=== PATIENT | female | born 1945 | race Caucasian/White ===

== ENCOUNTER 2017-10-08 11:58 | Inpatient (IN) | payer MEDICARE, OTHER ==
[~2017-10-08] VITALS: Ht 152.4 cm; Wt 58.8 kg
[~2017-10-08 11:58] MED LIST: ACETAMINOPHEN325 M1 PO; ALUM-MAG HYDRO360 ML PO; AMLODIPINE BESYL5 MG PO; ASPIRIN81 MG PO; ATENOLOL-CHLOR1 EAC1 PO; AUGMENTIN 500-1 EACH PO; BISACODYL5 MG PO; BISACODYL5 MG RC; BISCOLAX10 MG RC; CARAFATE1 GM/10 ML PO; CELLCEPT250 MG PO; CLONIDINE HCL0.1 MG PO; CLOTRIMAZOLE10 MG PO; COZAAR25 MG PO; CYMBALTA30 MG PO; CYMBALTA60 MG PO; DITROPAN XL10 MG PO; DOCUSATE SODIU100 MG PO; FOSAMAX10 MG PO; FOSINOPRIL SODI10 MG PO; FUROSEMIDE40 MG PO; GABAPENTIN100 MG PO; GLIMEPIRIDE2 MG PO; GUAIFENESI100 MG/5 M PO; HUMALOG100 UNITS/; HUMULIN R100 UNIT/2; HYDRALAZINE HCL25 MG PO; HYDRALAZINE HCL50 MG PO; ISOSORBIDE DINI20 MG PO; ISOSORBIDE MONO60 M1 PO; K DUR10 MEQ PO; KLOR-CON 1010 MEQ PO; LACTULOSE20 GM/30 M PO; LASIX20 MG PO; LASIX40 MG PO; LEVEMIR100 UNIT/1 SQ; LEVOTHYROXINE112 MCG PO; LEVOTHYROXINE125 MCG PO; LEVOTHYROXINE150 MCG PO; LIPITOR20 MG PO; LOSARTAN POTAS100 MG PO; LOSARTAN POTASS50 MG PO; MACROBID 100 M100 MG PO; MELOXICAM7.5 MG PO; METOLAZONE2.5 MG PO; METOPROLOL SUCC25 MG PO; METOPROLOL TART25 MG PO; MULTI-VITAMIN1 EACH PO; MYCOPHENOLATE500 MG PO; NEXIUM40 MG PO; NITROFURANTOIN100 M1 PO; NITROSTAT0.4 MG SL; NYSTATIN CREAM TOP; NYSTATIN100000 UNI PO; PANTOPRAZOLE SO40 MG PO; PHENERGAN25 MG/1 ML IM; PLAVIX75 MG PO; PROTONIX40 MG/ML PO; PYRIDIUM100 MG PO; ROPINIROLE HCL3 MG PO; SIMVASTATIN20 MG PO; SODIUM BICARBO650 MG PO; SULFAMETHOXAZO1 EAC1 PO; SYNTHROID50 MCG PO; TRADJENTA5 MG PO; ULTRAM 50MG50 MG PO; ULTRAM50 MG PO; VESICARE5 MG PO; VITAMIN D250000 UNIT PO; ZINC OXIDE56.7 GM TOP; ZOFRAN ODT4 MG PO; ZOLOFT50 MG PO
--- NOTE | 2017-10-08 13:17 | Diagnostic Imaging Report ---
EXAM: XR CHEST 1 VIEW DATE: 10/08/2017 12:32 PM INDICATION: Dizziness COMPARISON: 10/03/2017 FINDINGS: Lines and Tubes: None Heart and Mediastinum: Heart is enlarged. Lungs and Pleura: Perihilar fullness and haziness as well as patchy basilar opacities and small effusions, progressed. Bones and Soft Tissues: No acute findings. IMPRESSION: 1. Volume overload. Signed by: Dr. Owen Cardona MD on 10/08/2017 1:13 PM
--- NOTE | 2017-10-08 13:19 | Diagnostic Imaging Report ---
Examination: CT BRAIN WITHOUT CONTRAST History:Confusion; altered mental status. Technique: Transaxial noncontrast images from the skull base through the vertex were obtained. Sagittal and coronal reformatted images were done. Comparison: CT head dated 05/18/2017. Findings: Scalp: No abnormalities. Bones: Intact. No fractures. No blastic or lytic lesions. Brain sulci: Mild volume loss for age. Ventricles: No hydrocephalus. Extra-axial space: No abnormalities. Parenchyma: Again demonstrated is cortical based encephalomalacia in the left occipital lobe. Again demonstrated are mild confluent areas of hypoattenuation in the periventricular and subcortical white matter, nonspecific. No masses, hemorrhage, or acute cortical based vascular insults. Suprasellar region: No abnormalities. Craniocervical junction: The foramen magnum is patent. No Chiari one malformation. Incidental findings: Atherosclerotic calcification of the cavernous and supraclinoid internal carotid arteries. Impression: 1. No new or acute intracranial finding. No change from prior head CT dated 05/18/2017. 2. Unchanged moderate chronic microvascular ischemic change. 3. 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 Signed by: Dr. Madelyn Mireles M.D. on 10/08/2017 1:15 PM
[2017-10-08 13:56] LABS: BASOPHILS # (AUTO) 0.1 (0.0-0.1); BASOPHILS % 0.8 % (0.0-1.0); EOSINOPHILS # (AUTO) 0.4 (0.0-0.4); EOSINOPHILS % 5.7 % (0.0-6.0); HEMOGLOBIN 10.2 g/dL (12.0-16.0); LYMPHOCYTES % 31.4 % (18.0-39.1); MEAN CORPUSCULAR HEMOGLOBIN 30.1 pg (28-32); MEAN CORPUSCULAR HGB CONC 32.9 g/dL (31-35); MEAN CORPUSCULAR VOLUME 91.4 fL (81-99); MONOCYTES # (AUTO) 0.4 (0.2-0.8); MONOCYTES % 6.8 % (4.4-11.3); NEUTROPHILS # (AUTO) 3.5 (2.1-6.9); PLATELET COUNT 231 x10e3/uL (140-360); RED BLOOD COUNT 3.39 x10e6/uL (3.6-5.1); RED CELL DISTRIBUTION WIDTH 14.1 % (11.7-14.4)
[2017-10-08 14:06] LABS: BILIRUBIN,URINE NEGATIVE (NEGATIVE); CLARITY,URINE CLEAR (CLEAR); COLOR,URINE YELLOW (YELLOW); KETONES,URINE NEGATIVE (NEGATIVE); LEUKOCYTE ESTERASE ,URINE TRACE (NEGATIVE); NITRITE,URINE NEGATIVE (NEGATIVE); URINE UROBILINOGEN 0.2 mg/dL (0.2 - 1)
[2017-10-08 14:08] LABS: INR 0.94; PARTIAL THROMBOPLASTIN TIME 26.4 seconds (23.8-35.5)
[2017-10-08 14:10] LABS: PROTEIN,URINE DIPSTICK 2+ (NEGATIVE)
[2017-10-08 14:19] LABS: ALBUMIN 2.6 g/dL (3.5-5.0); ALBUMIN/GLOBULIN RATIO 0.8 (0.8-2.0); ANION GAP 13.9 mmol/L (8-16); CALCIUM 8.5 mg/dL (8.4-10.2); CREATININE, SERUM 2.98 mg/dL (0.57-1.11); POTASSIUM 4.9 mmol/L (3.5-5.1)
[2017-10-08 14:26] LABS: RBC,URINE 0-5 /HPF (0-5)
[2017-10-08 14:27] LABS: CREATINE KINASE MB 3.6 ng/mL (0.00-5.00); TROPONIN I 0.074 ng/mL (0-0.300)
[2017-10-08] MEDS ORDERED: SODIUM CHLORIDE FLUSH 10 ML SYR INJ PRN (14:45)
[2017-10-08] MEDS ORDERED: FUROSEMIDE INJ 10 MG/ML 4 ML VIAL IV ONE (15:15)
[2017-10-08] MEDS ORDERED: DEXTROSE 50% SYRINGE 50 ML IV PRN ×2 (15:15→18:30)
[2017-10-08 17:00] VITALS: BP 178/92
[2017-10-08 17:32] VITALS: BP 178/92
[2017-10-08] MEDS ORDERED: CEPHALEXIN MONOHYDRATE 250 MG CAP PO SCH ×2 (18:00→20:00)
[2017-10-08] MEDS ORDERED: BISACODYL 5 MG TAB EC PO PRN (18:30)
[2017-10-08] MEDS ORDERED: LACTULOSE SYRUP 20 GM/30 ML UDC PO PRN (18:30)
[2017-10-08] MEDS: MYCOPHENOLATE MOFETIL 250 MG CAP PO SCH (18:55)
[2017-10-08] MEDS: ISOSORBIDE DINITRATE 20 MG TAB PO SCH (19:32)
[2017-10-08] MEDS: CLONIDINE HCL 0.1 MG TAB PO PRN (19:33)
[2017-10-08 20:00] VITALS: BP 200/100
[2017-10-08] MEDS: ATORVASTATIN 20 MG TAB PO SCH (20:27)
[2017-10-08] MEDS: INSULIN REGULAR, HUMAN 100 UNIT/1 ML 3ML VIAL SQ SCH (20:28)
[2017-10-08] MEDS: SERTRALINE HCL 50 MG TAB PO SCH (20:28)
[2017-10-08] MEDS: CEPHALEXIN MONOHYDRATE 250 MG CAP PO SCH (23:00)
[2017-10-08] MEDS: ONDANSETRON HCL 4 MG ORAL DISINTEGRATING TAB PO SCH (23:00)
[2017-10-09] VITALS: BP 156/79
[2017-10-09 04:00] VITALS: BP 141/79
[2017-10-09 05:04] LABS: BASOPHILS # (AUTO) 0.1 (0.0-0.1); BASOPHILS % 0.8 % (0.0-1.0); EOSINOPHILS # (AUTO) 0.4 (0.0-0.4); EOSINOPHILS % 6.9 % (0.0-6.0); HEMATOCRIT 26.4 % (34.2-44.1); HEMOGLOBIN 8.5 g/dL (12.0-16.0); LYMPHOCYTES # (AUTO) 2.2 (1.0-3.2); LYMPHOCYTES % 35.7 % (18.0-39.1); MEAN CORPUSCULAR HEMOGLOBIN 29.5 pg (28-32); MEAN CORPUSCULAR HGB CONC 32.2 g/dL (31-35); MEAN CORPUSCULAR VOLUME 91.7 fL (81-99); MONOCYTES # (AUTO) 0.5 (0.2-0.8); MONOCYTES % 8.9 % (4.4-11.3); NEUTROPHILS # (AUTO) 2.9 (2.1-6.9); NEUTROPHILS % 47.5 % (38.7-80.0); PLATELET COUNT 201 x10e3/uL (140-360); RED BLOOD COUNT 2.88 x10e6/uL (3.6-5.1); RED CELL DISTRIBUTION WIDTH 14.2 % (11.7-14.4)
[2017-10-09] MEDS: CEPHALEXIN MONOHYDRATE 250 MG CAP PO SCH ×4 (05:06→23:27)
[2017-10-09] MEDS: ISOSORBIDE DINITRATE 20 MG TAB PO SCH ×3 (05:06→20:58)
[2017-10-09] MEDS: ONDANSETRON HCL 4 MG ORAL DISINTEGRATING TAB PO SCH ×4 (05:06→23:27)
[2017-10-09 05:26] LABS: CREATINE KINASE MB 2.3 ng/mL (0.00-5.00); TROPONIN I 0.053 ng/mL (0-0.300)
[2017-10-09] MEDS: LEVOTHYROXINE SODIUM 100 MCG TAB PO SCH (05:31)
[2017-10-09 05:37] LABS: ANION GAP 13.9 mmol/L (8-16); CREATININE, SERUM 2.97 mg/dL (0.57-1.11); POTASSIUM 4.9 mmol/L (3.5-5.1)
[2017-10-09] MEDS ORDERED: LEVOTHYROXINE SODIUM 100 MCG TAB PO SCH (06:00)
[2017-10-09] MEDS: ACETAMINOPHEN 325 MG TAB PO PRN ×2 (06:24→20:23)
[2017-10-09 07:41] VITALS: BP 147/80
[2017-10-09] MEDS: PANTOPRAZOLE SOD 40 MG TABEC PO SCH ×2 (08:00→16:22)
[2017-10-09] MEDS: INSULIN REGULAR, HUMAN 100 UNIT/1 ML 3ML VIAL SQ SCH ×4 (08:00→21:30)
[2017-10-09] MEDS: DOCUSATE SODIUM 100 MG CAP PO SCH ×2 (09:00→16:19)
[2017-10-09] MEDS ORDERED: LOSARTAN POTASSIUM 25 MG TAB PO SCH (09:00)
[2017-10-09] MEDS ORDERED: FUROSEMIDE 20 MG TAB PO SCH (09:00)
[2017-10-09] MEDS: MYCOPHENOLATE MOFETIL 250 MG CAP PO SCH ×2 (09:24→18:42)
[2017-10-09] MEDS: CLOPIDOGREL BISULFATE 75 MG TAB PO SCH (09:25)
[2017-10-09] MEDS: POTASSIUM CHLORIDE 10 MEQ TABCR PO SCH (09:25)
[2017-10-09] MEDS: MULTIVITAMINS/MINERALS TAB PO SCH (09:25)
[2017-10-09] MEDS: DULOXETINE HCL 30 MG DELAYED RELEASE PO SCH (09:25)
[2017-10-09] MEDS: METOPROLOL SUCCINATE 25 MG TAB XL PO SCH (09:25)
[2017-10-09] MEDS: FUROSEMIDE INJ 10 MG/ML 4 ML VIAL IV SCH (09:25)
[2017-10-09 11:36] VITALS: BP 165/85
[2017-10-09] MEDS: CLONIDINE HCL 0.1 MG TAB PO PRN (12:01)
[2017-10-09 15:47] VITALS: BP 124/77
[2017-10-09] MEDS ORDERED: ASPIRIN 81 MG CHEW TAB PO ONE ×4 (19:15)
[2017-10-09 20:00] VITALS: BP 150/76
[2017-10-09 20:17] LABS: CREATINE KINASE MB 2.7 ng/mL (0.00-5.00); TROPONIN I 0.033 ng/mL (0-0.300)
[2017-10-09] MEDS: ATORVASTATIN 20 MG TAB PO SCH (20:23)
[2017-10-09] MEDS: SERTRALINE HCL 50 MG TAB PO SCH (20:23)
[2017-10-10 00:33] VITALS: BP 149/81
--- NOTE | 2017-10-10 00:41 | Consultation ---
DATE OF CONSULTATION: October 09, 2017 CARDIOLOGY CONSULTATION REQUESTING PHYSICIAN: Dr. Veena Fair. REASON FOR CONSULTATION: Chest pain. HISTORY OF PRESENT ILLNESS: This is a 72-year-old woman with history of diabetes mellitus; hypertension; hyperlipidemia; coronary artery disease, status post prior PCI; reported history of congestive heart failure; chronic kidney disease stage III; left breast cancer status post mastectomy; and history of liver transplant who presents with complaints of shortness of breath. She had recently been discharged from the hospital on October 05, 2017, after admission for cellulitis. After she was discharged home, she said she began to have increased swelling for the last 3 days and development of shortness of breath 2 days prior to admission. She denies any palpitations, edema, orthopnea, or PND. This afternoon, she developed grabbing chest pain 4 to 5 out of 10 in severity, off and on, for which cardiology is consulted. She denies any radiation but reports that her left arm feels numb. REVIEW OF SYSTEMS: Negative except as per HPI. PAST MEDICAL HISTORY 1. Diabetes mellitus. 2. Hypertension. 3. Hyperlipidemia. 4. Coronary artery disease, status post prior stent. 5. Left breast cancer status post mastectomy without radiation or chemotherapy. 6. Chronic kidney disease stage 3. 7. COPD. 8. Liver transplant. PAST SURGICAL HISTORY 1. Liver transplant. 2. Hysterectomy. 3. Cholecystectomy. ALLERGIES: PLEASE SEE EMR. SOCIAL HISTORY: Denies tobacco, alcohol, or illicit drugs. FAMILY HISTORY: Noncontributory. MEDICATIONS: Please see medication list. PHYSICAL EXAMINATION VITAL SIGNS: Temperature 97.9 degrees, pulse 58, respiratory rate 20, blood pressure 124/77, and oxygen saturation 93%. GENERAL: Elderly woman in no acute distress. HEENT: Normocephalic and atraumatic. Pupils are equal. No scleral icterus. NECK: Supple. No thyromegaly or cervical lymphadenopathy. No carotid bruits. LUNGS: Clear to auscultation bilaterally. No wheezes or crackles. CARDIOVASCULAR: Normal rate, regular rhythm. No murmur. Normal S1 and S2. ABDOMEN: Soft. Nontender. Nondistended. EXTREMITIES: Trace edema. NEURO: Nonfocal exam. LABS: WBC 6.00, hemoglobin 8.5, hematocrit 26.4, and platelets 201,000. Sodium 137, potassium 4. 9, chloride 106, CO2 of 22, BUN 76, and creatinine 2.97. EKG: Normal sinus rhythm, nonspecific T-wave abnormality. Chest x-ray: Volume overload. IMPRESSIONS 1. Chest pain. 2. Status post liver transplant. 3. Chronic kidney disease stage 3. 4. Diabetes mellitus. 5. Hypertension. 6. Hyperlipidemia. 7. Coronary artery disease, status post prior stent. 8. Chronic obstructive pulmonary disease. RECOMMENDATIONS: Trend cardiac enzymes, obtain echocardiogram. Start aspirin. She may, given risk factors, consider nuclear stress test once she iis euvolemic. Thank you for this consult. We will continue to follow. Job#: [id number] CF СЕРГЕЙ
[2017-10-10 04:00] VITALS: BP 174/74
[2017-10-10] MEDS: ONDANSETRON HCL 4 MG ORAL DISINTEGRATING TAB PO SCH ×4 (06:25→23:59)
[2017-10-10] MEDS: MYCOPHENOLATE MOFETIL 250 MG CAP PO SCH ×2 (06:25→17:42)
[2017-10-10] MEDS: LEVOTHYROXINE SODIUM 100 MCG TAB PO SCH (06:25)
[2017-10-10] MEDS: ISOSORBIDE DINITRATE 20 MG TAB PO SCH ×3 (06:25→23:04)
[2017-10-10] MEDS: CEPHALEXIN MONOHYDRATE 250 MG CAP PO SCH (06:25)
[2017-10-10 07:44] LABS: ANION GAP 14.3 mmol/L (8-16); CALCIUM 7.8 mg/dL (8.4-10.2); CREATININE, SERUM 3.07 mg/dL (0.57-1.11); PHOSPHORUS 4.7 MG/DL (2.3-4.7); POTASSIUM 5.3 mmol/L (3.5-5.1)
[2017-10-10 07:54] VITALS: BP 165/74
[2017-10-10] MEDS: DOCUSATE SODIUM 100 MG CAP PO SCH ×2 (07:58→17:00)
[2017-10-10] MEDS: DULOXETINE HCL 30 MG DELAYED RELEASE PO SCH (07:58)
[2017-10-10] MEDS: PANTOPRAZOLE SOD 40 MG TABEC PO SCH ×2 (07:58→16:30)
[2017-10-10] MEDS: ASPIRIN 81 MG ENTERIC COATED PO SCH (07:58)
[2017-10-10] MEDS: FUROSEMIDE INJ 10 MG/ML 4 ML VIAL IV SCH (07:58)
[2017-10-10] MEDS: METOPROLOL SUCCINATE 25 MG TAB XL PO SCH (07:59)
[2017-10-10] MEDS: POTASSIUM CHLORIDE 10 MEQ TABCR PO SCH (07:59)
[2017-10-10] MEDS: MULTIVITAMINS/MINERALS TAB PO SCH (07:59)
[2017-10-10] MEDS: CLOPIDOGREL BISULFATE 75 MG TAB PO SCH (07:59)
[2017-10-10 08:07] LABS: CREATINE KINASE MB 4.6 ng/mL (0.00-5.00); FERRITIN 370.99 ng/mL (4.63-204.00); TROPONIN I 0.037 ng/mL (0-0.300)
[2017-10-10] MEDS: INSULIN REGULAR, HUMAN 100 UNIT/1 ML 3ML VIAL SQ SCH ×4 (08:08→22:30)
[2017-10-10 08:24] LABS: FOLATE 6.2 ng/mL (7.0-15.4)
[2017-10-10] MEDS: MEROPENEM 500 MG VIAL IV SCH (10:20)
--- NOTE | 2017-10-10 10:45 | Progress Note ---
DATE: October 10, 2017 CARDIOLOGY PROGRESS NOTE SUBJECTIVE: Still somewhat short of breath. No other complaints. OBJECTIVE VITALS: Temperature 98.6, heart rate 65, respiratory rate 16, blood pressure 165/74, and O2 sat 98% on 2 L per minute nasal cannula. Telemetry is sinus rhythm in the 60s. GENERAL: No acute distress. Alert. CHEST: Clear to auscultation. CARDIOVASCULAR: Regular rate and rhythm. Normal S1 and S2. Systolic ejection murmur of 1/6. ABDOMEN: Soft. EXTREMITIES: Trace edema. CARDIOVASCULAR MEDICATIONS 1. Metoprolol succinate 25 mg daily. 2. Clopidogrel 75 daily. 3. Aspirin 81 mg daily. 4. Furosemide 40 mg IV daily. 5. Isosorbide dinitrate 20 mg q.8 h. 6. Atorvastatin 40 mg at bedtime. 7. Clonidine 0.1 mg q.8 h. p.r.n. ASSESSMENT 1. Atypical chest pain with negative serial cardiac enzymes. 2. Status post liver transplant. 3. Chronic kidney disease, stage 3. 4. Diabetes mellitus. 5. Hypertension. 6. Dyslipidemia. 7. Coronary artery disease, status post prior stents. 8. Chronic obstructive pulmonary disease. RECOMMENDATIONS: Symptoms improved. Volume status seems to be improving. Can consider stress test for risk stratification. However, given advanced kidney disease would favor medical management over invasive reassessment of her coronary arteries. At this point, is clinically improving on current medical regimen continuous. Approaching euvolemia. Consider stress test in a.m. Job#: [id number] TIGIST
[2017-10-10] MEDS ORDERED: SOD POLYSTYRENE SULFONATE SUSP 15 GM/60 ML BTL PO NR (11:30)
[2017-10-10 11:44] VITALS: BP 182/81
--- NOTE | 2017-10-10 14:59 | Diagnostic Imaging Report ---
PROCEDURE: Frontal and lateral views of the chest. COMPARISON: None. INDICATIONS: WEAK FINDINGS: Lines/tubes: None. Lungs: The lungs are well-inflated. Persistent bilateral interstitial opacities extending from the kellen likely reflect interstitial edema. No definite consolidation. Pleura: No change in small bilateral pleural effusions. Heart and mediastinum: No interval change in enlarged cardiac silhouette and central pulmonary venous congestion. Bones: No acute bony abnormality. IMPRESSION: 1. findings consistent with decompensated CHF/fluid overload. Eusebio Fuentes M.D. Dictated by: Eusebio Fuentes M.D. on 10/10/2017 at 15:06 Electronically approved by: Eusebio Fuentes M.D. on 10/10/2017 at 15:06
[2017-10-10 17:10] VITALS: BP 160/78
[2017-10-10 18:34] LABS: CREATINE KINASE MB 3.2 ng/mL (0.00-5.00); TROPONIN I 0.05 ng/mL (0-0.300)
[2017-10-10 20:00] VITALS: BP 173/85
[2017-10-10] MEDS: ATORVASTATIN 20 MG TAB PO SCH (23:04)
[2017-10-10] MEDS: SERTRALINE HCL 50 MG TAB PO SCH (23:04)
[2017-10-10] MEDS: CLONIDINE HCL 0.1 MG TAB PO PRN (23:05)
[2017-10-11] VITALS: BP 155/88
[2017-10-11] MEDS ORDERED: PANTOPRAZOLE 40 MG 10ML VIAL IV STA (01:52)
[2017-10-11] MEDS ORDERED: CYANOCOBALAMIN INJ 1,000 MCG/ML VIAL IM ONE (02:00)
[2017-10-11] MEDS ORDERED: FOLIC ACID 1 MG TAB PO ONE ×2 (02:00→04:21)
[2017-10-11] MEDS ORDERED: PANTOPRAZOL 40MG/SOD CHL 0.9% 250 ML IV SCH (02:00)
[2017-10-11 04:00] VITALS: BP 158/83
[2017-10-11] MEDS ORDERED: SODIUM CHLORIDE 0.9% 250ML 250 ML ONE (05:03)
[2017-10-11] MEDS: ONDANSETRON HCL 4 MG ORAL DISINTEGRATING TAB PO SCH ×2 (05:53→12:00)
[2017-10-11] MEDS: ISOSORBIDE DINITRATE 20 MG TAB PO SCH ×3 (05:53→22:00)
[2017-10-11] MEDS: LEVOTHYROXINE SODIUM 100 MCG TAB PO SCH (05:53)
[2017-10-11] MEDS: MYCOPHENOLATE MOFETIL 250 MG CAP PO SCH ×2 (05:54→18:11)
[2017-10-11 06:52] LABS: ANION GAP 16.1 mmol/L (8-16); CALCIUM 7.9 mg/dL (8.4-10.2); CREATININE, SERUM 3.16 mg/dL (0.57-1.11); POTASSIUM 4.1 mmol/L (3.5-5.1)
[2017-10-11] MEDS: INSULIN REGULAR, HUMAN 100 UNIT/1 ML 3ML VIAL SQ SCH ×4 (07:30→20:52)
[2017-10-11 07:52] VITALS: BP_SYST 151; BP_SYST 157; BP_DIAS 70
[2017-10-11] MEDS: FOLIC ACID 1 MG TAB PO SCH (09:00)
[2017-10-11] MEDS: ASPIRIN 81 MG ENTERIC COATED PO SCH (09:00)
[2017-10-11] MEDS: MULTIVITAMINS/MINERALS TAB PO SCH (09:00)
[2017-10-11] MEDS ORDERED: MEROPENEM 500MG 500 MG in SODIUM CHLORIDE 0.9% 50ML 50 ML IV SCH (09:00)
[2017-10-11] MEDS: CLOPIDOGREL BISULFATE 75 MG TAB PO SCH (09:00)
[2017-10-11] MEDS: DOCUSATE SODIUM 100 MG CAP PO SCH ×2 (09:00→17:51)
[2017-10-11] MEDS: FUROSEMIDE INJ 10 MG/ML 4 ML VIAL IV SCH ×2 (09:38→18:44)
[2017-10-11] MEDS: MEROPENEM 500 MG VIAL IV SCH (09:39)
[2017-10-11] MEDS ORDERED: REGADENOSON 0.4 MG/5 ML SYR IV ONE (10:03)
[2017-10-11 11:29] VITALS: BP 163/77
[2017-10-11] MEDS: DULOXETINE HCL 30 MG DELAYED RELEASE PO SCH (11:59)
[2017-10-11] MEDS: METOPROLOL SUCCINATE 25 MG TAB XL PO SCH (12:00)
[2017-10-11] MEDS: PANTOPRAZOL 40MG/SOD CHL 0.9% 50 ML IV SCH ×3 (12:08→22:15)
--- NOTE | 2017-10-11 16:01 | Cardiology Report ---
DATE OF STUDY: October 11, 2017 NUCLEAR STRESS TEST PROCEDURE: Rest stress single isotope SPECT imaging with pharmacologic stress and gated SPECT imaging. INDICATIONS: Chest pain. PROCEDURE: Pharmacologic stress testing was performed with regadenoson, per protocol. The heart rate was 63 beats per minute at baseline and increased to 86 beats per minute during the regadenoson infusion. The rest blood pressure was 153/81 and decreased to 133/74 mmHg, which is a normal response. Patient did not develop any significant symptoms. Resting electrocardiogram demonstrated normal sinus rhythm, left ventricular hypertrophy, inferolateral infarct, age undetermined. There were no ST segment changes consistent with myocardial ischemia. PACs, PVCs and fusion complexes were noted during stress and recovery. Myocardial perfusion imaging was performed at rest following the injection of 11 mCi of tetrofosmin. At peak pharmacologic effect, the patient was injected with 33 mCi of tetrofosmin. Gated post stress tomographic imaging was performed. FINDINGS: The overall quality of the study is fair. Left ventricular cavity is noted to be normal size on the rest and stress studies. SPECT images demonstrate homogenous tracer distribution throughout the myocardium. Gated SPECT imaging reveals normal myocardial thickening and wall motion. The left ventricular ejection fraction was calculated to be 63%. IMPRESSION: Myocardial perfusion imaging is normal. Overall left ventricular systolic function was normal without regional wall motion abnormalities. Job#: [id number] GH MTDCindy
[2017-10-11] MEDS ORDERED: ONDANSETRON HCL 4 MG ORAL DISINTEGRATING TAB PO PRN (17:45)
--- NOTE | 2017-10-11 18:12 | Progress Note ---
DATE: October 11, 2017 CARDIOLOGY PROGRESS NOTE SUBJECTIVE: The patient denies chest pain or shortness of breath. She was seen for nuclear stress test. OBJECTIVE VITAL SIGNS: Temperature 96.6 degrees. Pulse 103, respiratory rate 17, blood pressure 163/77, oxygen saturation 93% on 4 liters nasal cannula. GENERAL: Awake, alert and in no acute distress. LUNGS: Clear to auscultation bilaterally. No wheezes or crackles. CARDIOVASCULAR: Normal rate, regular rhythm. A systolic murmur, 1/6. Normal S1 and S2. ABDOMEN: Soft. EXTREMITIES: Trace edema. CARDIAC MEDICATIONS: 1. Isosorbide dinitrate 20 mg p.o. q.8 h. 2. Metoprolol succinate 25 mg p.o. daily. 3. Levothyroxine 150 mcg p.o. daily. 4. Atorvastatin 40 mg p.o. nightly. 5. Aspirin 81 mg p.o. daily. 6. Clopidogrel 75 mg p.o. daily. 7. Furosemide 60 mg IV b.i.d. LABS: Sodium 139, potassium 4.1, chloride 103, CO2 of 24, BUN 68, creatinine 3.16. Stool occult blood positive. TELEMETRY: Normal sinus rhythm. IMPRESSION 1. Atypical chest pain with negative serial cardiac biomarkers. 2. Status post liver transplant. 3. Chronic kidney disease stage 3. 4. Diabetes mellitus. 5. Hypertension. 6. Hyperlipidemia. 7. History of coronary artery disease with prior stent. 8. Chronic obstructive pulmonary disease. RECOMMENDATIONS: The patient's stress test was without evidence of ischemia. Continue current cardiac medications. Defer volume management to nephrology. Echocardiogram, however, demonstrated mildly reduced systolic function. Given her renal disease and negative stress test, would favor medical management. Will discuss with nephrology if we can start EMERY or ARB at this time. Please have the patient follow up with us in the office in 2 weeks after discharge. Thank you for this consult. We will continue to follow. Job#: [id number] GH MTDD
[2017-10-11 19:39] VITALS: BP 179/79
[2017-10-11] MEDS: SERTRALINE HCL 50 MG TAB PO SCH (20:51)
[2017-10-11] MEDS ORDERED: ATORVASTATIN 40 MG TAB PO SCH (21:00)
[2017-10-11] MEDS: ACETAMINOPHEN 325 MG TAB PO PRN (23:52)
[2017-10-12 00:15] VITALS: BP 171/78
[2017-10-12] MEDS: CLONIDINE HCL 0.1 MG TAB PO PRN ×2 (00:57→10:58)
[2017-10-12 04:00] VITALS: BP 152/76
[2017-10-12] MEDS: PANTOPRAZOL 40MG/SOD CHL 0.9% 50 ML IV SCH ×3 (04:18→15:38)
[2017-10-12] MEDS: LEVOTHYROXINE SODIUM 100 MCG TAB PO SCH (06:15)
[2017-10-12] MEDS: MYCOPHENOLATE MOFETIL 250 MG CAP PO SCH ×2 (06:15→17:32)
[2017-10-12] MEDS: ISOSORBIDE DINITRATE 20 MG TAB PO SCH ×2 (06:15→15:42)
[2017-10-12 07:29] VITALS: BP 164/74
[2017-10-12] MEDS: MULTIVITAMINS/MINERALS TAB PO SCH (08:42)
[2017-10-12] MEDS: FUROSEMIDE INJ 10 MG/ML 4 ML VIAL IV SCH ×2 (08:42→17:32)
[2017-10-12] MEDS: FOLIC ACID 1 MG TAB PO SCH (08:42)
[2017-10-12] MEDS: DULOXETINE HCL 30 MG DELAYED RELEASE PO SCH (08:42)
[2017-10-12] MEDS: ASPIRIN 81 MG ENTERIC COATED PO SCH (08:42)
[2017-10-12] MEDS: CLOPIDOGREL BISULFATE 75 MG TAB PO SCH (08:42)
[2017-10-12] MEDS: METOPROLOL SUCCINATE 25 MG TAB XL PO SCH (08:43)
[2017-10-12] MEDS ORDERED: CHOLESTYRAMINE 4 GM PACKET PO SCH (09:00)
[2017-10-12] MEDS: INSULIN REGULAR, HUMAN 100 UNIT/1 ML 3ML VIAL SQ SCH ×3 (09:01→17:37)
[2017-10-12] MEDS: MEROPENEM 500 MG VIAL IV SCH (09:06)
[2017-10-12 11:13] VITALS: BP 182/82
--- NOTE | 2017-10-12 14:06 | Progress Note ---
DATE: October 12, 2017 CARDIOLOGY PROGRESS NOTE SUBJECTIVE: The patient denies chest pain or shortness of breath. OBJECTIVE VITAL SIGNS: Temperature 96.3 degrees. Pulse 57, respiratory rate 18, blood pressure 182/82, oxygen saturation 95%. GENERAL: Awake, alert and in no acute distress. LUNGS: Clear to auscultation bilaterally. No wheezes or crackles. CARDIOVASCULAR: Normal rate, regular rhythm. A systolic murmur, 1/6. Normal S1 and S2. ABDOMEN: Soft. EXTREMITIES: Trace edema. CARDIAC MEDICATIONS 1. Clonidine 0.1 mg p.o. q.8 h. p.r.n. 2. Metoprolol tartrate 25 mg p.o. daily. 3. Furosemide 60 mg IV b.i.d. 4. Aspirin 81 mg p.o. daily. 5. Clopidogrel 75 mg p.o. daily. 6. Levothyroxine 150 mcg p.o. daily. 7. Isosorbide dinitrate 20 mg p.o. q.8 h. 8. Atorvastatin 40 mg p.o. nightly. LABS: None today. TELEMETRY: Normal sinus rhythm. IMPRESSION 1. Atypical chest pain with negative serial cardiac biomarkers. 2. Status post liver transplant. 3. Chronic kidney disease, stage 3. 4. Diabetes mellitus. 5. Hypertension. 6. Hyperlipidemia. 7. History of coronary artery disease with prior stent. 8. Chronic obstructive pulmonary disease. RECOMMENDATIONS: The patient's stress test was without evidence of ischemia. Continue current cardiac medications. Defer volume management to nephrology given chronic kidney disease. However, the patient's echocardiogram demonstrated mildly reduced systolic function. Given her renal disease and negative stress test, would favor medical management initially. Will discuss with nephrology if we can start EMERY or ARB at this time. Please have the patient follow up with us 2 weeks after discharge. Thank you for this consult. We will continue to follow. Job#: [id number]
[2017-10-12 15:44] VITALS: BP 177/74
--- NOTE | 2017-10-12 16:23 | Consultation ---
DATE OF CONSULTATION: NEPHROLOGY CONSULTATION REQUESTING PHYSICIAN: Dr. Fair. REASON FOR CONSULTATION: CKD. Thank you for allowing us to participate in Ms. Dye's care. HISTORY OF PRESENT ILLNESS: This is a 72-year-old female with history of chronic kidney disease probably stage 4, recurrent fluid overload, and history of liver transplant, who came with some diarrhea and dizziness as well as melena, and GI has been evaluating. Creatinine is noted to be about 3. Chest x-ray was showing some fluid overload. She had been on losartan. She notes that she is still somewhat short of breath; however, somewhat tangential when she talks. PAST HISTORY: Significant for 1. CKD 4. Baseline creatinine in the system appeared to be around 3. 2. History of liver transplant. 3. Hypertension. 4. History of fluid overload. 5. Type 2 diabetes. 6. Breast cancer status post mastectomy. HOME MEDICATIONS: Please see list. ALLERGIES: PLEASE SEE EMR. SOCIAL HISTORY: Does not abuse alcohol. Denies tobacco. REVIEW OF SYSTEMS CONSTITUTIONAL: No fever or chills. GI: Some diarrhea and melena, being evaluated by gastroenterology service. CARDIAC: Increased swelling and dyspnea. MUSCULOSKELETAL: Occasional arthralgias. REST OF REVIEW: Negative. PHYSICAL EXAMINATION GENERAL: Lying in bed. No distress. She is able to lie flat without any distress. VITAL SIGNS: Temperature is 98.6, pulse 76, blood pressure 147/80. HEENT: Atraumatic. NECK: No definite JVD. CHEST: Faint crackles at the bases. CARDIAC: Normal heart tones. Rhythm sounds regular. EXTREMITIES: Maybe trace edema. LABS: Sodium 137, potassium 4.9, bicarb 22, creatinine 2.97, BUN 76. Hemoglobin 8.5. ASSESSMENT 1. Presumed chronic kidney disease 4. Appears to be close to baseline. Unclear if there is any acute injury. 2. Fluid overload. 3. Hypertension. Not quite at goal. PLAN: Discontinue losartan. Leave on IV Bumex. She has had workup for CKD before. I do not think we need to repeat it. Of note, renal ultrasound October 02, 2017, shows increased echogenicity with smallish kidneys of 8.2 and 8.3 cm consistent with the CKD. Will follow along with you. Avoid nephrotoxins such as NSAIDs and IV contrast if possible. Sincerely, Job#: [id number] EV
--- NOTE | 2017-10-12 18:03 | Discharge Summary ---
Ms. Dye is a 72-year-old female with history of liver transplant, diabetes, hypertension, hyperlipidemia, coronary artery disease, chronic kidney disease, COPD. She came transferred to the emergency room after being discharged from the hospital the same day with lower extremity edema and weakness as well as diarrhea. Since she has been here, she has been evaluated by balance staff inspector. A stress test was negative. PHYSICAL EXAMINATION GENERAL: Today, she is awake and alert. VITAL SIGNS: Temperature 96.6, blood pressure 164/74. HEART: Regular rate. LUNGS: Poor inspiratory effort. ABDOMEN: Soft. On the blood work, potassium 4.1, creatinine 3.16, glucose 212. White count 6.07, hemoglobin 8.5. DISCHARGE DIAGNOSES 1. Urinary tract infection with extended-spectrum beta lactamase Escherichia coli on IV antibiotics. 2. Chest pain with lower extremity edema, status post negative stress test. 3. History of coronary artery disease, status post stent. 4. Hypertension. 5. Diabetes. 6. Chronic kidney disease, stage 4. 7. Chronic diarrhea. 8. Anemia. 9. History of liver transplant. PLAN: Transfer the patient to [place] to continue IV antibiotics for 2 more weeks. Continue all the other medications. Please see home medication reconciliation list. All this was discussed with the patient. All questions were answered to satisfaction. DOMINIC DEAL MD Job#: [id number]
[2017-10-12 20:00] VITALS: BP 148/70
[2017-10-18] MEDS ORDERED: CYANOCOBALAMIN INJ 1,000 MCG/ML VIAL IM SCH (09:00)
== END 2017-10-12 21:49 | DRG 690 ==
LOC: ER 12:05 → UNDOADMOB 15:49 → ERHOLD 15:49 → IMCU 16:15 → OBSVTOIN 10-10 12:55 → INTOOBSV 10-10 12:55 → MED/SURG3 10-10 19:30 → IMCU 10-10 19:30
PROVIDERS: ADMIT Internal Medicine; ATTEND Internal Medicine
DX: N39.0 Urinary tract infection, site not specified (principal); N18.4 Chronic kidney disease, stage 4 (severe); I13.0 Hypertensive heart and chronic kidney disease with heart failure and stage 1 through stage 4 chronic kidney disease, or unspecified chronic kidney disease; Z94.4 Liver transplant status; E11.22 Type 2 diabetes mellitus with diabetic chronic kidney disease; K92.1 Melena; E44.1 Mild protein-calorie malnutrition; I25.10 Atherosclerotic heart disease of native coronary artery without angina pectoris; J44.9 Chronic obstructive pulmonary disease, unspecified; B19.20 Unspecified viral hepatitis C without hepatic coma; D64.9 Anemia, unspecified; E78.5 Hyperlipidemia, unspecified; Z85.3 Personal history of malignant neoplasm of breast; B96.20 Unspecified Escherichia coli [E. coli] as the cause of diseases classified elsewhere; Z16.12 Extended spectrum beta lactamase (ESBL) resistance; K52.9 Noninfective gastroenteritis and colitis, unspecified
CPT/HCPCS: 36415; 70450; 71010; 78452; 80048; 80053; 81001; 82270; 82550; 82553; 82607; 82728; 82746; 82948; 83540; 83630; 83880; 84100; 84466; 84484; 85025; 85045; 85610; 85730; 87045; 87086; 87177; 87186; 87493; 93005; 93017; 93306; 96361; 96365; 96366; 99285; A9502; G0378; J1940; J2185; J3420; J7050

== ENCOUNTER 2017-12-24 17:12 | Emergency (ER) | payer MEDICARE, OTHER ==
[~2017-12-24] VITALS: Ht 152.4 cm; Wt 58.5 kg
[2017-12-24 21:21] LABS: BILIRUBIN,URINE NEGATIVE (NEGATIVE); CLARITY,URINE CLOUDY (CLEAR); COLOR,URINE YELLOW (YELLOW); KETONES,URINE NEGATIVE (NEGATIVE); LEUKOCYTE ESTERASE ,URINE 2+ (NEGATIVE); NITRITE,URINE NEGATIVE (NEGATIVE); PROTEIN,URINE DIPSTICK 3+ (NEGATIVE); URINE UROBILINOGEN 0.2 mg/dL (0.2 - 1)
[2017-12-24 21:31] LABS: BACTERIA,URINE MANY /HPF; EPITHELIAL CELLS,URINE RARE /LPF; WBC,URINE (MAN) >50 /HPF (0-5)
== END 2017-12-24 22:52 | disposition home or self-care (01) ==
LOC: ER 17:12
DX: N30.00 Acute cystitis without hematuria (principal); E11.22 Type 2 diabetes mellitus with diabetic chronic kidney disease; I12.9 Hypertensive chronic kidney disease with stage 1 through stage 4 chronic kidney disease, or unspecified chronic kidney disease; N18.4 Chronic kidney disease, stage 4 (severe); Z79.4 Long term (current) use of insulin; E03.9 Hypothyroidism, unspecified; Z94.4 Liver transplant status; Z87.440 Personal history of urinary (tract) infections; Z85.3 Personal history of malignant neoplasm of breast; Z90.10 Acquired absence of unspecified breast and nipple; Z88.8 Allergy status to other drugs, medicaments and biological substances; Z88.2 Allergy status to sulfonamides; Z88.5 Allergy status to narcotic agent
CPT/HCPCS: 81001; 87086; 87186; 99283